=== PATIENT | female | born 1965 | race Caucasian/White ===

== ENCOUNTER 2025-05-30 08:26 | Outpatient (AMB) | payer OTHER, SELFPAY ==
--- NOTE | 2025-05-30 12:07 | MHC.OFFVISWM ---
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 [facility] BMI 30.5 Allergies acetaminophen (From Vicodin) Allergy (Intermediate, Verified 05/30/25 12:07) rash hydrocodone (From Vicodin) Allergy (Intermediate, Verified 02/05/25 14:29) rash Medication List - Last Reconciled 05/30/25 by Manoj Yoo MD acetaminophen (Tylenol Extra Strength) 500 mg PO Q6H PRN albuterol sulfate 90 mcg/actuation (Ventolin HFA) 2 puffs inhalation Q6H PRN dextroamphetamine-amphetamine 20 mg (Adderall) 20 mg PO BID lamotrigine (Lamictal) 100 mg PO DAILY lorazepam 1 mg PO DAILY PRN HPI HPI TV [facility]IENT SERVICES ADMINISTRATOR [facility] BMI 30.5: Details: Start time: 11.59am, End time: 12.44pm ?I spent 40 minutes speaking with the patient on the phone plus an additional 5 minutes reviewing and updating records for a total of 45 minutes HPI Comments Details: Previous weight loss efforts: WW from Dr. Mccrary Wakes up: 4.30am, Sleeps: 10pm Breakfast:5am (toast with peanut butter, fruit) Lunch: 12-1pm (salad with chicken) Dinner: 7pm (rice, salad, chicken) Snacks: 10am (apple sauce), 4pm (cheese with crackers), 9pm (toast) Exercise: Gym membership Beverages: Coffee: none, Tea: rarely, Soda: Coke zero 1/d, Juice: none, ETOH: none PFSH Medical History (Updated 05/30/25 @ 12:24 by Manoj Yoo MD) ADHD DJD (degenerative joint disease) Asthma Anxiety Depression BMI 30.0-30.9,adult Obesity History of in vitro fertilization Surgical History (Updated 05/30/25 @ 12:11 by Manoj Yoo MD) Hx laparoscopic cholecystectomy History of colonoscopy History of thumb surgery History of hysterectomy History of Family History (Updated 02/05/25 @ 14:36 by Benito Kim RN) Mother Cancer Father Lung cancer Social History (Updated 02/05/25 @ 14:36 by Benito Kim RN) Alcohol intake: current Comment: socially Patient Tobacco Use Status: Never used Tobacco Telehealth Telehealth Telehealth Platform: Telephone Location of provider rendering services: practice address Location of patient: address on file Patient Identification confirmed using: Name, : Yes Telehealth method: voice only Patient verbally consented to treatment: Yes Patient verbally consented to billing insurance company: Yes Patient informed of any privacy concerns related to visit: Yes Minutes spent on Phone/Video with Pt.: 45 Assessment & Plan Assessment & Plan (1) Obesity: Code(s): E66.9 - Obesity, unspecified Category: Medical Qualifiers: Obesity type: due to excess calories Obesity classification: adult class 1 (BMI 30 - 34.9) Serious obesity comorbidity presence: without serious comorbidity Body mass index: BMI 30.0-30.9 Qualified Code(s): E66.811 - Obesity, class 1; E66.09 - Other obesity due to excess calories; Z68.30 - Body mass index [BMI] 30.0-30.9, adult Plan: 1. Nutritional counseling. Start with one CELEBRATE REBUILD protein (buy online with the link I gave you) shake (HALF scoop in 8oz low fat unsweetened almond milk each) at 5am-7am, 1 protein bar (CELEBRATE protein bars, buy at [facility] [employer] [facility], buy online with the link I gave you) ) at 8am-10am, another CELEBRATE REBUILD protein shake (HALF scoop in 8oz low fat unsweetened almond milk) at 11am-1pm, another Celebrate protein bar at 2pm-4pm, dinner at 5pm (8 forks of protein and 8 forks of salad/vegetables) AND another CELEBRATE REBUILD protein shake (HALF scoop in 8oz low fat unsweetened almond milk) at 7pm-9pm. So you do 3 protein shakes, 2 protein bars and one meal per day. Meal to include lean meat (beef, fish, pork, turkey, chicken), or macedonian yogurt, or egg whites, or beans with a salad with olive oil and fruits (berries, pears, apples, kiwi). Avoid salt, breads, potatoes, rice, pasta, desserts. 3. Each shake would be drunk slowly, like coffee in a period of 2 hours. 4. Cut each bar in 4 pieces and eat each piece in 30min ?to make each bar last 2 hours. 5. I emphasized the importance of measuring accurately the food portion and measure it when serving the food in plate 6. The meal portions include 8 full-size forks of meat and 8 full-size forks of salad. You always eat the meat portion but you can replace up to 4 forks for salad/vegetables with rice, potatoes or pasta, or a fruit ?if you like. The less you do it the better weight loss will be. 7. One full-size fork is what it can be scooped on the fork without falling aside and not what can be bit with the fork. Use regular forks like those you find in a typical restaurant. 8.? Please buy the body composition scale we discussed and send me weight measurements as soon as possible and then once a week. Always include your diet and exercise plan. 9. Start treadmill with an incline of 2.0 and speed of 3.0. Increase incline by 1 every 3 min to a max incline of 8.0, stay 3min at 8.0 and then return to 2.0 and repeat same steps until calorie goal is met. Goal is to burn 2000 calories per week on exercise, which means either 300 calories daily, or 400 calories 5 days per week, or 500 calories 4 days per week, or 650 calories 3 days per week. 10. Alternatively start stationary bike at a resistance level of 4.0 Increase level by 1.0 every 3 min to a max level of 10.0. Stay at this level for 3 min and then return to level 4.0 and repeat same steps until 300 calories are burned. Velocity target is 12mph and heart rate is 145 bpm. Goal is to burn 2000 calories per week on exercise 11. The best choice would be to purchase a stationary bike, elliptical or treadmill at home that can track calories. Let me know if you do so I can give you an exercise plan. 12. Goal is to lose at least 1.5-2lbs per week 13. Goal to lose at least 10% of your weight, which is about 20lbs. Minimum weight goal: 146lbs 14. Please follow the diet plan exactly without any change. If you don't like something about the plan or you feel hungry you need to communicate with me so I can help you revise the plan. You should not change the plan yourself 15. I ordered a medication to help you with the weight loss which is called Zepbound. My office will try to authorize it. Please let me know when you receive it so I can give you a meal and exercise plan. Common side effects include nausea, vomiting, constipation, diarrhea, abdominal pain. Please let me know if you develop any of these symptoms. Medications: New tirzepatide (weight loss) (Zepbound) 2.5 mg (0.5 mL) subcut QWEEK 2 mL 0RF 4 weeks E66.09 - Other obesity due to excess calories, E66.811 - Obesity, class 1, Z68.30 - Body mass index [BMI] 30.0-30.9, adult
[2025-05-30 12:15] VITALS: BMI 30.4
== END 2025-05-30 12:45 | disposition home or self-care (01) ==
LOC: HO.HBS 08:26
PROVIDERS: PCP Physician Assistant; Visit Provider Surgery
DX: E66.811 Obesity, class 1 (principal); E66.09 Other obesity due to excess calories; Z68.30 Body mass index [BMI] 30.0-30.9, adult
CPT/HCPCS: 99204